=== PATIENT | female | born 1950 | race Two or more races ===

== ENCOUNTER 2018-12-20 10:06 | Inpatient (IN) | payer OTHER ==
[~2018-12-20] VITALS: Ht 167.6 cm; Wt 56.7 kg
[2019-01-02] MEDS ORDERED: TIROSINT50 MCG (10:43)
[2019-01-02] MEDS ORDERED: HYDROXYCHLOROQUINE PO (10:43)
[2019-01-02] MEDS ORDERED: ATORVASTATIN CA10 MG PO (10:44)
[2019-01-02] MEDS ORDERED: LISINOPRIL5 MG PO (10:44)
[2019-01-02] MEDS ORDERED: NEURONTIN300 MG PO (10:44)
[2019-01-09] MEDS ORDERED: HYDROXYCHLOROQ200 MG PO (07:42)
[2019-01-18] MEDS ORDERED: ULTRACET PO (14:29)
[2019-01-18] MEDS ORDERED: INTESTINEX680 M1 PO (14:29)
[2019-01-18] MEDS ORDERED: OMEPRAZOLE20 M1 PO (14:29)
== END 2019-01-18 15:55 | disposition home or self-care (01) | DRG 330 ==
LOC: SURG 01-02 07:00 → O/R 01-09 05:44 → SURH 01-09 05:44
PROVIDERS: ADMIT Surgery
PROC: 0DJD8ZZ Inspection of Lower Intestinal Tract, Via Natural or Artificial Opening Endoscopic (ICD-10-PCS; 2019-01-09)
PROC: 0DTN4ZZ Resection of Sigmoid Colon, Percutaneous Endoscopic Approach (ICD-10-PCS; principal; 2019-01-09 14:30)
PROC: 30233N1 Transfusion of Nonautologous Red Blood Cells into Peripheral Vein, Percutaneous Approach (ICD-10-PCS; 2019-01-11)
DX: K57.20 Diverticulitis of large intestine with perforation and abscess without bleeding (principal); I13.0 Hypertensive heart and chronic kidney disease with heart failure and stage 1 through stage 4 chronic kidney disease, or unspecified chronic kidney disease; D62 Acute posthemorrhagic anemia; N73.6 Female pelvic peritoneal adhesions (postinfective); K63.89 Other specified diseases of intestine; I11.9 Hypertensive heart disease without heart failure; D50.8 Other iron deficiency anemias; E78.00 Pure hypercholesterolemia, unspecified; E03.8 Other specified hypothyroidism; N18.2 Chronic kidney disease, stage 2 (mild); D63.1 Anemia in chronic kidney disease; M32.8 Other forms of systemic lupus erythematosus; Z79.52 Long term (current) use of systemic steroids